=== PATIENT | female | born 1950 | race African-American/Black ===

== ENCOUNTER 2021-01-12 11:28 | Emergency (ER) | payer OTHER ==
[~2021-01-12] VITALS: Ht 165.1 cm; Wt 77.0 kg
[2021-01-12 12:50] LABS: BASOPHILS % 0.8 % (0.0-2.0); EOSINOPHILS % 0.2 % (0.0-5.0); HEMATOCRIT. 38.2 % (36.0-48.0); HEMOGLOBIN. 13.2 g/dL (12.0-16.0); LYMPHOCYTES % 47.2 % (20.0-50.0); MEAN CORPUSCULAR HEMOGLOBIN 33.2 pg (28.0-32.0); MEAN CORPUSCULAR VOLUME 95.8 fL (81.0-99.0); MONOCYTES % 6.4 % (2.0-8.0); NEUTROPHILS % 45.4 % (40.0-76.0); PLATELET 230 x1000/uL (130-400); RED BLOOD CELL COUNT 3.99 mill/uL (4.2-5.4); RED CELL DISTRIBUTION WIDTH 13.2 % (11.6-14.6)
[2021-01-12 12:53] LABS: CHLORIDE 105 mEq/L (98-107)
[2021-01-12 13:21] LABS: T4 FREE 1.14 ng/dL (0.76-1.46)
[2021-01-12 14:00] VITALS: BP 124/70
== END 2021-01-12 15:45 | disposition home or self-care (01) ==
LOC: ER 11:28 → EDSEX 11:28 → ER 15:45
DX: R07.89 Other chest pain (principal); R03.0 Elevated blood-pressure reading, without diagnosis of hypertension; I45.6 Pre-excitation syndrome
CPT/HCPCS: 36415; 71045; 80053; 83520; 83880; 84436; 84439; 84443; 84481; 84484; 85025; 93005; 99285

== ENCOUNTER 2021-03-03 13:38 | Emergency (ER) | payer OTHER ==
[~2021-03-03] VITALS: Ht 165.1 cm; Wt 77.0 kg
[2021-03-03 15:22] LABS: BASOPHILS % 0.7 % (0.0-2.0); EOSINOPHILS % 0.3 % (0.0-5.0); HEMATOCRIT. 35.9 % (36.0-48.0); HEMOGLOBIN. 12.1 g/dL (12.0-16.0); LYMPHOCYTES % 46.8 % (20.0-50.0); MEAN CORPUSCULAR HEMOGLOBIN 32.7 pg (28.0-32.0); MEAN CORPUSCULAR VOLUME 96.5 fL (81.0-99.0); MONOCYTES % 7.9 % (2.0-8.0); NEUTROPHILS % 44.3 % (40.0-76.0); PLATELET 215 x1000/uL (130-400); RED BLOOD CELL COUNT 3.72 mill/uL (4.2-5.4); RED CELL DISTRIBUTION WIDTH 13.4 % (11.6-14.6)
[2021-03-03 15:34] LABS: CHLORIDE 106 mEq/L (98-107)
[2021-03-03 16:26] VITALS: BP 131/71
== END 2021-03-03 16:41 | disposition home or self-care (01) ==
LOC: ER 13:38
DX: R00.2 Palpitations (principal); Z90.49 Acquired absence of other specified parts of digestive tract; Z98.890 Other specified postprocedural states; Z90.710 Acquired absence of both cervix and uterus
CPT/HCPCS: 36415; 71045; 76700; 80053; 83880; 84484; 85025; 99285